=== PATIENT | female | born 1960 | race Two or more races ===

== ENCOUNTER → 2017-04-02 | Outpatient (CLI) | payer OTHER ==
--- NOTE | ~2017-04-02 | MY29 ---
[facility] A Service of [facility] RADIOLOGY TEXT RESULTS PATIENT: MICHELLE THOMAS LOCATION: [facility] : 56 UNIT #: [id number] AGE: [address]: Maxx Cheng MD SEX: F ORDER DR: [id number] [facility] [address] [place], [place] [address] [id number] O MR#: [id number] Acc #: [id number] NAME: MICHELLE THOMAS : 1960 SEX: F STUDY DATE/TIME: 04/02/2017 10:56 UNIT: [facility] ROOM: STUDY DESCRIPTION: MY FESTUS SCREENING W/ CAD BILAT Attending Physician: Maxx Cheng M.D. Referring Physician: Maxx Cheng M.D. Ordering Physician: Maxx Cheng M.D. Primary Care Physician: Maxx Cheng M.D. MEDICAL IMAGING REPORT This report is preliminary unless electronic signature is present EXAM Digital screening mammogram, 04/02/2017, [facility]. HISTORY 56-year-old woman, baseline mammogram. No risk elevation. COMPARISON None. FINDINGS Digital imaging of each breast was completed utilizing a two-view examination of each breast in craniocaudal and mediolateral-oblique projections. Review and interpretation of digital mammograms include a second review in conjunction with FDA-approved CAD device. There is a normal parenchymal presentation bilaterally consistent with the patient's age. There are no breast masses imaged and no parenchymal asymmetry is visualized. There are no suspicious microcalcifications and I see no focal architectural disturbance. ADDENDUM Breast parenchyma is fatty replaced. IMPRESSION Negative screening digital mammogram. One-year followup recommended. Patients over the age of 40 are entered into a reminder system with target due date for the next mammogram. A result letter will also be sent to the patient. BIRADS: 1 Negative Dictated by... Shahab Reid M.D. [facility] A Service of [facility] RADIOLOGY TEXT RESULTS PATIENT: MICHELLE THOMAS LOCATION: [facility] : 56 UNIT #: [id number] AGE: [address]: Maxx Cheng MD SEX: F ORDER DR: THIS IS AN ELECTRONICALLY VERIFIED REPORT Shahab Reid M.D. at 04/02/2017 3:32 PM ROSA/re TD: 04/02/2017 13:12 JOB #: [id number] MEDICAL IMAGING REPORT Page 1 of 1 COPY
== END | disposition home or self-care (01) ==
LOC: CWCC 10:27
DX: Z12.31 Encounter for screening mammogram for malignant neoplasm of breast (principal); R92.8 Other abnormal and inconclusive findings on diagnostic imaging of breast
CPT/HCPCS: G0202